=== PATIENT | female | born 1955 | race Two or more races ===

== ENCOUNTER 2017-11-16 13:00 | Inpatient (IN) | payer OTHER, MEDICARE ==
[~2017-11-16] VITALS: Ht 162.6 cm; Wt 71.4 kg
[2017-12-10] MEDS ORDERED: IBUP-1129 PO (13:44)
[2017-12-10] MEDS ORDERED: WARF-21 PO (13:44)
[2017-12-10] MEDS ORDERED: LEVO150T7 PO (13:44)
[2017-12-10] MEDS ORDERED: ROPI2TAB23 PO (13:44)
[2017-12-10] MEDS ORDERED: ATOR40TA16 PO (13:44)
[2017-12-10] MEDS ORDERED: ASPI81TA23 PO (13:44)
[2017-12-10] MEDS ORDERED: CHOL5000 PO (13:44)
[2017-12-14] MEDS ORDERED: LACTATED RINGER'S 1000 ML INJ 2,000 ML IV ONE (12:00)
[2017-12-14] MEDS ORDERED: GLYCOPYRROLATE 1 MG/5 ML SYRINGE IV PUSH ONE (12:00)
[2017-12-14] MEDS ORDERED: PHENYLEPH/NS 1000 MCG/10 ML SYR IV ONE (12:00)
[2017-12-14] MEDS ORDERED: ONDANSETRON HCL 4 MG/2 ML VIAL IV ONE (12:00)
[2017-12-14] MEDS ORDERED: DEXAMETHASONE SOD PHOS 4 MG/ML VIAL IV ONE (12:00)
[2017-12-14] MEDS ORDERED: ePHEDrine/NS 25 MG/5 ML SYRINGE IV ONE (12:00)
[2017-12-14] MEDS ORDERED: NEOSTIGMINE 5 MG/5 ML SYRINGE IV PUSH ONE (12:00)
[2017-12-14] MEDS ORDERED: PROPOFOL 200 MG/20 ML AMP IV ONE (12:00)
[2017-12-14] MEDS ORDERED: LIDOCAINE HCL 1% PF 5 ML SYRINGE OTHER ONE (12:00)
[2017-12-14] MEDS ORDERED: ROCURONIUM INJ 50 MG/5 ML SYRINGE IV PUSH ONE (12:00)
[2017-12-14] MEDS ORDERED: FAT EMULSION 20% INJ 0 ML ONE (12:09)
[2017-12-14] MEDS ORDERED: SODIUM CHLORID 0.9% 500 ML IV PRN (12:45)
[2017-12-14] MEDS ORDERED: LACTATED RINGER'S 1000 ML IV PRN (12:45)
[2017-12-14] MEDS ORDERED: CHLORHEXIDINE GLUCONATE 2 % 1 PACK (2 CLOTHS) TOPICAL PRN (12:45)
[2017-12-14] MEDS ORDERED: POVIDONE IODINE 5% (ANTISEPSIS KIT) 4 APPLICATIONS EACH NARE PRN (12:45)
[2017-12-14] MEDS ORDERED: METOPROLOL TARTRATE 25 MG TAB PO PRN (12:45)
[2017-12-14 13:00] VITALS: PULSE 72
[2017-12-14] MEDS ORDERED: VANCOMYCIN 1000 MG/NS 250 ML (for <70 kg) IV SCH ×2 (13:00)
[2017-12-14] MEDS ORDERED: CHLORHEXIDINE GLUCONATE 4% SOLN 120 ML BTL TOPICAL SCH (13:00)
[2017-12-14] MEDS ORDERED: MIDAZOLAM HCL 2 MG/2 ML VIAL ONE ×2 (13:16→18:30)
[2017-12-14] MEDS ORDERED: ROPIVACAINE PERI-ARTICULAR INJECTION. P-ARTICULR SCH ×5 (14:00)
[2017-12-14] MEDS ORDERED: BUPIVACAINE HCL PF 0.5% 30 ML VIAL ONE (14:07)
[2017-12-14] MEDS ORDERED: LIDOCAINE HCL 1% PF 5 ML AMPULE ONE (14:08)
[2017-12-14] MEDS: ceFAZolin 2 GM PREMIX 50 ML ONE ×2 (14:19→14:31)
[2017-12-14] MEDS ORDERED: ceFAZolin 2 GM PREMIX 50 ML ONE (14:42)
[2017-12-14] MEDS ORDERED: ceFAZolin 2 GM PREMIX 50 ML IV SCH (14:45)
[2017-12-14] MEDS ORDERED: GENTAMICIN SULFATE 80 MG/2 ML VIAL ONE (15:10)
[2017-12-14] MEDS ORDERED: ONDANSETRON HCL 4 MG/2 ML VIAL IVP PRN (18:00)
[2017-12-14] MEDS ORDERED: ALUMINUM/MAGNESIUM/SIMETH 30 ML CUP PO PRN (18:00)
[2017-12-14] MEDS ORDERED: Post-op Orders (for Pharmacy) XX ONE (18:00)
[2017-12-14] MEDS ORDERED: ROPINIROLE 2 MG PO SCH (18:00)
[2017-12-14] MEDS ORDERED: ACETAMINOPHEN/HYDROcodone 325 MG/7.5 MG TAB PO PRN (18:00)
[2017-12-14] MEDS ORDERED: WALKER WHEELS/F1 MIS (18:13)
[2017-12-14] MEDS ORDERED: CPMMACHINE (18:14)
--- NOTE | 2017-12-14 18:15 | HHI.FF ---
Face to Face Verification Diagnosis: (1) Failed total knee arthroplasty Physical Therapy Gait training, Transfer training, bed to chair Knee: Total knee, Protocol: Right Right LE Weight Bearing: WB as tolerated Left LE Weight Bearing: WB as tolerated Nursing RN: 3 days/week x 2 weeks Nursing: Dressing changes (clean incision with alcohol and apply dry sterile dressing daily ) Additional Instructions Pt/INR q Wednesday and , call/text results to Annie CATHERINE cell # [phone] Goal INR 1.5-1.8 I have seen patient Jessica Miller on 12/14/17. My clinical findings support the need for the requested home health care services because: Deconditioned w/ increased weakness I certify that my clinical findings support that this patient is homebound because: Post-op weakness Mark Gonzales MD Dec 14, 2017 18:15
--- NOTE | 2017-12-14 18:17 | HHI.PR ---
Immediate Post Op Note Procedure Date: Dec 14, 2017 Pre Op Diagnosis: Post Op Diagnosis: R Failed TKR Surgeon: Jim Gonzales MD Director Of Child Welfare Services(s): Carlos Gonzales MD; Annie Hurtado PA-C Procedure: R Rev TKR Complications: None Specimen(s) removed: None Estimated blood loss: 50cc Anesthesia: General, Regional Block, Local Drains: Hemovac Tourniquet time (min at mmHg) 109 min at 250 mm Hg Patient to: PACU Patient Condition: Good Implant/Devices: SEE IMPLANT LOG (if applicable) Date/Time of Procedure: SEE SURGICAL CARE RECORD Mark Gonzales MD Dec 14, 2017 18:16
[2017-12-14] MEDS ORDERED: DO NOT ADM ANY ANTICOAGULANT DRUGS PRN (18:20)
[2017-12-14] MEDS ORDERED: *morphine SULFATE 8 MG/ML PERIprocedure ONLY ONE (18:29)
[2017-12-14] MEDS ORDERED: ACETAMINOPHEN 1000 MG/100 ML 100 ML IV ONE ×2 (18:29→18:30)
[2017-12-14] MEDS: LACTATED RINGER'S 1000 ML INJ 1,000 ML IV SCH (18:45)
--- NOTE | 2017-12-14 18:58 | RADRPT ---
EXAM DATE/TIME: 12/14/2017 18:33 [facility] COMPARISON: No previous studies available for comparison. INDICATIONS : Post-op right total knee replacement. MEDICAL HISTORY : None. SURGICAL HISTORY : Total knee replacement, right. ENCOUNTER: Initial ACUITY: 1 day PAIN SCORE: Non-responsive. LOCATION: Right knee. FINDINGS: Two view examination of the right knee demonstrates postop total knee replacement. Skin janeen anter iorly. Drain in the soft tissues. CONCLUSION: 1. Postop right total knee replacement. Normal alignment. Oneal Pop MD on December 14, 2017 at 18:55 Board Certified Radiologist. This report was verified electronically.
[2017-12-14] MEDS ORDERED: *morphine SULFATE 4 MG/ML PERIprocedure ONLY ONE (20:51)
[2017-12-14] MEDS: ZOLPIDEM TARTRATE 5 MG TAB PO PRN (22:43)
[2017-12-14] MEDS: ATORVASTATIN 40 MG TAB PO SCH (22:43)
[2017-12-14] MEDS: ACETAMINOPHEN/HYDROcodone 325 MG/7.5 MG TAB PO PRN (23:51)
[2017-12-15] VITALS: BP 97/49; PULSE 56; RESP 16; TEMP 96.4; O2SAT 95
[2017-12-15] MEDS: LACTATED RINGER'S 1000 ML INJ 1,000 ML IV SCH ×2 (00:59→19:00)
[2017-12-15] MEDS: MORPHINE SULFATE 8 MG/ML INJ IV PUSH PRN ×2 (01:19→23:40)
[2017-12-15 04:00] VITALS: BP 98/45; PULSE 58; RESP 16; TEMP 96.7; O2SAT 94
[2017-12-15] MEDS: LEVOTHYROXINE SODIUM 150 MCG TAB PO SCH (05:31)
[2017-12-15] MEDS: ACETAMINOPHEN/HYDROcodone 325 MG/7.5 MG TAB PO PRN ×4 (06:24→20:16)
--- NOTE | 2017-12-15 07:56 | PD.ORT.PN ---
Subjective Subjective Remarks pt doing well, post op soreness involving right knee Objective Vitals Vital Signs Date Time Temp Pulse Resp B/P (MAP) Pulse Ox O2 Delivery O2 Flow Rate FiO2 12/15/17 04:00 96.7 58 16 98/45 (62) 94 12/15/17 00:00 96.4 56 16 97/49 (65) 95 12/14/17 21:30 76 18 109/57 (74) 95 Room Air 12/14/17 21:00 75 18 104/53 (70) 96 Room Air 12/14/17 20:00 75 18 91/51 (64) 97 Room Air 12/14/17 19:45 80 18 124/58 (80) 97 Nasal Cannula 2 12/14/17 19:30 74 18 92/52 (65) 97 Nasal Cannula 2 12/14/17 19:15 77 18 109/54 (72) 97 Nasal Cannula 2 12/14/17 19:00 77 18 96/50 (65) 97 Nasal Cannula 2 12/14/17 18:45 84 18 110/53 (72) 95 Nasal Cannula 2 12/14/17 18:30 75 18 125/58 (80) 95 Nasal Cannula 2 12/14/17 18:21 98.9 73 18 138/63 (88) 95 Nasal Cannula 2 12/14/17 14:51 73 18 128/60 (82) 98 12/14/17 13:00 72 12/14/17 12:35 98.8 72 20 130/60 (83) 98 I/O 12/14/17 12/14/17 12/14/17 12/15/17 12/15/17 12/15/17 07:00 15:00 23:00 07:00 15:00 23:00 Intake Total 2450 ml Output Total 90 ml 120 ml Balance 2360 ml -120 ml Intake IV Total 200 ml Autotransfusion 250 ml Other 2000 ml Output Drainage Total 40 ml 120 ml Estimated Blood Loss 50 ml Imaging Last 24 hours Impressions Knee X-Ray 12/14/17 1800 Signed Impressions: Service Date/Time: Thursday, December 14, 2017 18:33 - CONCLUSION: 1. Postop right total knee replacement. Normal alignment. Oneal Pop MD Objective Remarks right knee dressing intact, small amount of serosangious drainage no calf tenderness +NVI can already lift and flex knee while laying in bed Assessment & Plan Assessment and Plan POD #1 s/p R rev TKA low dose Coumadin for DVT prop- was unable to put order in computer, nurse notified PT-WBAT, CPM anticipate discharge home with [facility] tomorrow Annie Hurtado Dec 15, 2017 07:55
[2017-12-15 08:00] VITALS: BP 110/50; PULSE 51; RESP 18; TEMP 96.4; O2SAT 94
[2017-12-15 10:11] LABS: HEMATOCRIT 32.5 % (35.0-46.0); HEMOGLOBIN 11.1 GM/DL (11.6-15.3); INTERNATIONAL NORMALIZED RATIO 1.5 RATIO
[2017-12-15 12:00] VITALS: BP 97/47; PULSE 66; RESP 18; TEMP 96; O2SAT 97
[2017-12-15 16:00] VITALS: BP 100/51; PULSE 67; RESP 18; TEMP 96.2; O2SAT 99
[2017-12-15] MEDS ORDERED: WARFARIN SOD 2.5 MG TAB PO ONE (16:00)
[2017-12-15 20:00] VITALS: BP 107/53; PULSE 71; RESP 16; TEMP 97.9; O2SAT 96
[2017-12-15] MEDS: ATORVASTATIN 40 MG TAB PO SCH (20:16)
[2017-12-15] MEDS: ZOLPIDEM TARTRATE 5 MG TAB PO PRN (23:40)
[2017-12-15] MEDS ORDERED: MAGNESIUM HYDROXIDE SUSP 30 ML CUP PO PRN (23:45)
[2017-12-16] VITALS: BP 99/51; PULSE 75; RESP 16; TEMP 97.9; O2SAT 94
[2017-12-16] MEDS: ACETAMINOPHEN/HYDROcodone 325 MG/7.5 MG TAB PO PRN ×3 (02:33→12:53)
[2017-12-16] MEDS: MORPHINE SULFATE 8 MG/ML INJ IV PUSH PRN (05:54)
[2017-12-16] MEDS: LEVOTHYROXINE SODIUM 150 MCG TAB PO SCH (05:54)
[2017-12-16 06:19] LABS: INTERNATIONAL NORMALIZED RATIO 1.5 RATIO; PROTHROMBIN TIME - PATIENT 15.4 SEC (9.8-11.6)
[2017-12-16] MEDS: LACTATED RINGER'S 1000 ML INJ 1,000 ML IV SCH (07:30)
[2017-12-16 07:42] VITALS: BP 103/54; PULSE 81; RESP 19; TEMP 97.1; O2SAT 93
--- NOTE | 2017-12-16 07:48 | PD.ORT.PN ---
Subjective Subjective Remarks pt states the knee is quite painful this morning still wants to go home today Objective Vitals Vital Signs Date Time Temp Pulse Resp B/P (MAP) Pulse Ox O2 Delivery O2 Flow Rate FiO2 12/16/17 07:42 97.1 81 19 103/54 (70) 93 12/16/17 00:00 97.9 75 16 99/51 (67) 94 12/15/17 20:00 97.9 71 16 107/53 (71) 96 12/15/17 16:00 96.2 67 18 100/51 (67) 99 12/15/17 12:00 96.0 66 18 97/47 (64) 97 12/15/17 08:00 96.4 51 18 110/50 (70) 94 I/O 12/15/17 12/15/17 12/15/17 12/16/17 12/16/17 12/16/17 07:00 15:00 23:00 07:00 15:00 23:00 Intake Total 600 ml 600 ml 500 ml Output Total 120 ml Balance 480 ml 600 ml 500 ml Intake Oral 600 ml 500 ml IV Total 600 ml Output Drainage Total 120 ml # Voids 3 1 # Bowel Movements 0 Result Diagram: 12/15/17 0846 Other Results Laboratory Tests Test 12/15/17 08:46 12/16/17 05:05 Prothromb Time International Ratio 1.5 RATIO 1.5 RATIO Prothrombin Time 15.0 SEC (9.8-11.6) 15.4 SEC (9.8-11.6) Imaging Last 24 hours Impressions Knee X-Ray 12/14/17 1800 Signed Impressions: Service Date/Time: Thursday, December 14, 2017 18:33 - CONCLUSION: 1. Postop right total knee replacement. Normal alignment. Oneal Pop MD Objective Remarks right knee dressing dry and intact, ice in place no calf tenderness +NVI Assessment & Plan Assessment and Plan POD #2 s/p R rev TKA low dose Coumadin for DVT prop PT-WBAT, CPM anticipate discharge home today with [place], orthopedically stable Annie Hurtado Dec 16, 2017 07:48
[2017-12-16] MEDS ORDERED: HYDR-3288 PO (07:49)
[2017-12-16] MEDS ORDERED: COUM2TAB PO (07:50)
[2017-12-16 12:00] VITALS: BP 139/59; PULSE 84; RESP 18; TEMP 96.7; O2SAT 98
[2017-12-16] MEDS ORDERED: WARFARIN SOD 5 MG TAB PO PRN (16:00)
--- NOTE | 2017-12-22 18:01 | PD.OP ---
cc: Mark Gonzales MD; Ángel Gonzales MD Operative Report Date of Surgery: Dec 14, 2017 Preoperative Diagnosis: Malfunctioning right total knee replacement arthroplasty. Subsidence right tibial component, total knee replacement arthroplasty. Postoperative Diagnosis: Same Procedure: Revision right total knee replacement arthroplasty Anesthesia: General with regional for pain control Surgeon: Ángel Gonzales Doctor Of Osteopathy(s): Mark Gonzales Operation and Findings: EBL: 50 cc INDICATION: This patient presents with a history of a previous right total knee replacement arthroplasty performed in [place]. The patient has had tibial subsidence. Investigative studies shows no evidence of infection but appeared to have aseptic loosening of the tibial component. The patient now presents for revision arthroplasty. NOTE: Mark Gonzales was present for the entire surgical procedure as my first front ventilator. In my medical opinion that individual's skill and care was necessary for proper management of this patient. TOURNIQUET TIME: 109 minutes COMPANY: [employer] FEMUR: Size 3, posterior stabilized, 75 x 14 mm stem TIBIA: Size 3, fixed bearing, 75 x 12 mm stem PATELLA: Biomet existing, oval dome POLYETHYLENE INSERT: 12.5 mm, posterior stabilized PROCEDURE: This patient was brought the operating room and anesthetized in the supine position. The patient was positioned supine on the table. The tourniquet was placed about the thigh, and the leg was scrubbed with alcohol followed by Hibiclens followed by ChloraPrep and draped sterilely. A timeout was done, and antibiotics were given. After exsanguination the tourniquet was inflated to 250 mmHg. An anterior incision was made and a median parapatellar arthrotomy was performed. The patella was released laterally and subluxed allowing preservation of the existing patella. The attention was directed to the tibia. Retractors were positioned. The tibial component was loosened and subsided. This was removed. There was significant amount of granulation tissue. We approached the tibia first. The previous cement mantle was removed. A reamer was placed down the shaft of the tibia and reamed to 12 mm. An external alignment guide was utilized using an intramedullary guide for alignment. This was used to freshen up the bony cuts. The final cut was excellent. This is sized for a #3 tibial component. A airplane pilot photogrammetry hole was placed in the distal femur allowing a 7 valgus cut removing 0mm from the distal femur. On the medial side we needed a 4 mm buildup. The canal was reamed to 14 mm. We then placed anterior posterior and chamfer cuts anticipating an 8 mm buildup posterior and lateral and a 4 mm buildup posterior and medial the cuts appeared to be excellent. The box cut was made for the posterior stabilized component. All granulation tissue was excised. The wound was irrigated copiously. A trial reduction showed that a 12.5 mm insert fit best. A medial release was necessary of some of the deep fibers of the medial collateral ligament using a curved half-inch osteotome. The final components were assembled on the back table. Local anesthesia was utilized for pain control. 2 packets of methylmethacrylate were mixed on the back table and the components were inserted starting with the tibia followed by the femur. The overall fit was excellent. The final 12.5 mm insert was impacted. The patient had range of motion from full extension to 125 flexion. The arthrotomy was repaired with interrupted 2-0 Tycron, 0 Vicryl, 2-0 Vicryl and skin with metallic janeen A sterile dressing was applied. Sponge counts, needle counts and instrument counts were all correct. The patient tolerated procedure well and was taken to recovery in satisfactory condition. FINDINGS: There was no complication that was appreciated. The patient had a significant varus deformity. There appear to be some stretching of the lateral collateral ligaments. This necessitated us to have a partial release of the MCL. The final solution appear to be excellent. Ángel Gonzales MD Dec 22, 2017 18:01
== END 2017-12-16 13:49 | disposition home health service (06) | DRG 468 ==
LOC: HSDI 12-14 11:40 → N06B 12-14 21:28
PROVIDERS: ADMIT Orthopaedic Surgery Orthopaedic Surgery of the Spine; ATTEND Orthopaedic Surgery Orthopaedic Surgery of the Spine
PROC: 0SRC0J9 Replacement of Right Knee Joint with Synthetic Substitute, Cemented, Open Approach (ICD-10-PCS; 2017-12-14)
PROC: 0MNN0ZZ Release Right Knee Bursa and Ligament, Open Approach (ICD-10-PCS; 2017-12-14)
PROC: 0SPC0JZ Removal of Synthetic Substitute from Right Knee Joint, Open Approach (ICD-10-PCS; principal; 2017-12-14 15:00)
DX: T84.032A Mechanical loosening of internal right knee prosthetic joint, initial encounter (principal); F17.210 Nicotine dependence, cigarettes, uncomplicated; Y79.2 Prosthetic and other implants, materials and accessory orthopedic devices associated with adverse incidents; M21.161 Varus deformity, not elsewhere classified, right knee
CPT/HCPCS: 73560; 85014; 85018; 85610; 86850; 86891; 86900; 86901; 86920; 94150; C1776; J0131; J0690; J0735; J1100; J1580; J1885; J2250; J2270; J2370; J2405; J2710; J2795; J3010; J3370; J7050; J7120; L1830